=== PATIENT | male | born 1975 | race Caucasian/White ===

== ENCOUNTER 2017-04-15 12:10 | Emergency (ER) | payer BC ==
[2017-04-15] MEDS ORDERED: MORPHINE ONE (12:36)
[2017-04-15] MEDS ORDERED: ZOFRAN ONE (12:36)
[2017-04-15] MEDS ORDERED: MORPHINE IV ONE (12:38)
[2017-04-15] MEDS ORDERED: ZOFRAN IV ONE (12:48)
[2017-04-15] MEDS ORDERED: DILAUDID ONE (14:51)
[2017-04-15] MEDS ORDERED: DILAUDID IV ONE ×3 (14:58→17:37)
--- NOTE | 2017-04-15 15:31 | XRay Report ---
Right wrist: Trauma, deformity. Routine views demonstrate a fracture through the distal radius with posterior displacement of the articulating fragment. The distal fragment remains aligned with the carpal bones. No other fractures or displacement is noted. Associated swelling. Impression: Displaced radius fracture.
[2017-04-15] MEDS ORDERED: TORADOL IV ONE (16:54)
[2017-04-15] MEDS ORDERED: ATIVAN IV ONE (17:37)
--- NOTE | 2017-04-15 18:18 | Emergency Department Report ---
ED Upper Extremity Inj HPI - General Chief Complaint: Extremity Injury, Upper Stated Complaint: RT WRIST DEFORMITY Time Seen by Provider: 04/15/17 16:25 Source: patient Mode of arrival: Ambulatory Limitations: No Limitations - History of Present Illness Initial Comments: 41-year-old male with no significant past medical history presents to the hospital complaining of pain to the right wrist after fall. Patient fell at work. He sustained an abrasion to his right knee and deformity to right wrist. Patient is right-hand dominant. Pain aching and throbbing, constant, rated 10 /10 intensity, worse palpation and movement. No alleviating factors reported. Tetanus within 10 years reported. - Related Data Previous Rx's Medication Instructions Recorded Last Taken Type Bacitracin/Pramoxine/Aloe Vera 1 applicatio TP TID #1 tube 04/15/17 Unknown Rx [Bacitraycin Plus Ointment] Ibuprofen [Motrin] 800 mg PO Q8HR PRN #30 tablet 04/15/17 Unknown Rx Oxycodone HCl/Acetaminophen 1 each PO Q6HR PRN #20 tablet 04/15/17 Unknown Rx [Percocet 7.5/325 mg] Allergies Allergy/AdvReac Type Severity Reaction Status Date / Time No Known Allergies Allergy Unverified 04/15/17 12:18 ED Review of Systems ROS: Stated complaint: RT WRIST DEFORMITY Other details as noted in HPI Comment: All other systems reviewed and negative Other: Constitutional: No fevers chills Eyes: No eye pain visual changes ENT: No ear pain or throat pain Neck: Denies pain Respiratory: Denies cough wheezing shortness of breath Cardiovascular: Denies chest pain, palpitations, syncope GI: Denies abdominal pain, nausea, vomiting, diarrhea : Denies dysuria Musculoskeletal: As per HPI Skin: Right knee abrasion Neurologic: Denies headache, numbness, weakness Psychiatric: Denies suicidal ideation, hallucinations ED Past Medical Hx - Past Medical History Previous Medical History?: No - Surgical History Past Surgical History?: No - Social History Smoking Status: Never Smoker Substance Use Type: None - Medications Home Medications: Home Medications Medication Instructions Recorded Confirmed Last Taken Type Bacitracin/Pramoxine/Aloe Vera 1 applicatio TP TID #1 tube 04/15/17 Unknown Rx [Bacitraycin Plus Ointment] Ibuprofen [Motrin] 800 mg PO Q8HR PRN #30 tablet 04/15/17 Unknown Rx Oxycodone HCl/Acetaminophen 1 each PO Q6HR PRN #20 tablet 04/15/17 Unknown Rx [Percocet 7.5/325 mg] ED Physical Exam - General Limitations: No Limitations - Other Other exam information: General: No limitations, patient is alert in no acute distress Head exam: Atraumatic, normocephalic Eyes exam: Normal appearance, pupils equal reactive to light, extraocular movements intact ENT: Moist mucous membrane, normal oropharynx Neck exam: Normal inspection, full range of motion, no meningismus nontender Respiratory exam: Clear to auscultation bilateral, no wheezes, rales, crackles Cardiovascular: Normal rate and rhythm, normal heart sounds Abdomen: Soft, nondistended, and nontender, with normal bowel sounds, no rebound, or guarding Extremity: Deformity noted to right wrist with limited movement. Patient able to move his fingers, sensation intact distally, 2+ radial pulse. Cap refill less than 2 seconds. Right knee abrasion but full range of motion without deformity Back: Normal Inspection, full range of motion, no tenderness Neurologic: Alert, oriented x3, cranial nerves intact, no motor or sensory deficit Psychiatric: normal affect, normal mood ED Course Vital Signs 04/15/17 04/15/17 04/15/17 12:15 12:38 16:18 Temperature 98 F 98.5 F Pulse Rate 101 H 89 Respiratory 16 16 16 Rate Blood Pressure 144/89 Blood Pressure 140/76 [Left] O2 Sat by Pulse 98 100 96 Oximetry 04/15/17 17:23 Temperature 98.1 F Pulse Rate 71 Respiratory 16 Rate Blood Pressure Blood Pressure 124/64 [Left] O2 Sat by Pulse 100 Oximetry - Reevaluation(s) Reevaluation #1: 04/15/17 19:49 Patient required multiple doses narcotic for pain reduction. After receiving a last dose of Dilaudid and Ativan patient became diaphoretic. Patient mental status was normal, no respiratory depression, and blood pressure remained normal. Patient was observed further and remained stable and now will be discharged - Consultations Consultation #1: 04/15/17 17:[address] Valenzuela onboarding specialist orthopedic physician. Reduction not recommended. Splint and follow-up on Tuesday for outpatient arrangement for surgery recommended ED Medical Decision Making - Radiology Data Radiology results: report reviewed (right wrist x-ray: Displaced distal radius fracture) - Differential Diagnosis fracture, contusion, sprain, abrasion Critical Care Time: No Critical care attestation.: If time is entered above; I have spent that time in minutes in the direct care of this critically ill patient, excluding procedure time. ED Disposition Clinical Impression: Closed fracture of right distal radius, Abrasion, right knee, initial encounter Disposition: TO HOME OR SELFCARE Is pt being admited?: No Does the pt Need Aspirin: No Condition: Stable Instructions: Wrist Fracture in Adults (ED), Abrasion (ED) Additional Instructions: Take the medication as prescribed. Sprain important that you follow with the orthopedic doctor on Tuesday because she will likely require surgical treatment of your fracture. Prescriptions: Bacitracin/Pramoxine/Aloe Vera [Bacitraycin Plus Ointment] 1 applicatio TP TID # 1 tube Ibuprofen [Motrin] 800 mg PO Q8HR PRN #30 tablet PRN Reason: Pain Oxycodone HCl/Acetaminophen [Percocet 7.5/325 mg] 1 each PO Q6HR PRN #20 tablet PRN Reason: Pain Referrals: DUNCAN VALENZUELA MD [Staff Physician] - 04/18/17 (Follow-up With his orthopedic doctor on Tuesday. You will likely need surgery) Time of Disposition: 19:49
[2017-04-15 19:53] VITALS: BP 123/67
== END 2017-04-15 20:09 | disposition home or self-care (01) ==
LOC: ED 12:10
DX: S52.501A Unspecified fracture of the lower end of right radius, initial encounter for closed fracture (principal); S80.211A Abrasion, right knee, initial encounter; W18.30XA Fall on same level, unspecified, initial encounter; Y93.89 Activity, other specified; Y92.89 Other specified places as the place of occurrence of the external cause; Y99.8 Other external cause status
CPT/HCPCS: 29125; 73110; 96374; 96375; 96376; 99284; J1170; J1885; J2060; J2270; J2405